=== PATIENT | female | born 2000 | race Caucasian/White ===

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

== ENCOUNTER 2022-02-15 14:57 | Emergency (ER) | payer BC, SELFPAY ==
[2022-02-15 15:23] VITALS: BP 126/73; PULSE 94; RESP 18; TEMP 36.7; O2SAT 99
--- NOTE | 2022-02-15 15:52 | ED.ABDPAIN ---
HPI - Abdominal Pain General Chief Complaint: Abdominal Pain Stated Complaint: abdominal pain,nausea Time Seen by Provider: 02/15/22 15:52 Source: patient and RN notes reviewed Mode of arrival: ambulatory Limitations: no limitations History of Present Illness HPI narrative: 21-year-old female presented for several complaints. She endorses and sore throat for several weeks, increasing over the last few days. She also endorses chronic abdominal pain and nausea related to anxiety. She states these symptoms have increased over the last 2 days as well. She reports pain in his around the belly button. She has had diarrhea over the last 3 days. She denies urinary complaints, decreased appetite, bloating, vomiting, hematochezia, melena, fevers or chills. LMP unknown in January, not sexually active. Has tried ondansetron for history of nausea but it does not help. History of tuberous sclerosis (follows with neuro), seizures, ADD, anxiety/depression, PTSD Related Data Home Medications Medication Instructions Recorded Confirmed levetiracetam 500 mg tablet 500 mg PO BID 06/04/21 02/15/22 sertraline 100 mg tablet 100 mg PO DAILY 06/04/21 02/15/22 methylphenidate HCl 10 mg tablet 10 mg DAILY 09/10/21 02/15/22 prazosin 2 mg capsule 2 mg DAILY 09/10/21 02/15/22 trazodone 100 mg tablet 100 mg PO HS 02/15/22 02/15/22 Allergies Allergy/AdvReac Type Severity Reaction Status Date / Time No Known Allergies Allergy Unknown Uncoded 02/15/22 15:37 Review of Systems Review of Systems: CONSTITUTIONAL: Denies body aches, fever, chills ENT: reports rhinorrhea, congestion CARDIOVASCULAR: Denies chest pain, palpitations, or edema. RESPIRATORY: Denies dyspnea. GASTROINTESTINAL: Endorses abdominal pain, nausea, diarrhea. Denies hematochezia, melena, hematemesis GENITOURINARY: Denies dysuria, hematuria, or CVA tenderness. SKIN: Denies rash, itching, or wounds. MUSCULOSKELETAL: Denies back pain, joint pain, or myalgia. NEUROLOGIC: Denies headache, numbness, tingling, or weakness. All systems reviewed & are unremarkable except as noted in HPI and below PMFSH Past Medical History Medical History (Reviewed 02/15/22 @ 16:06 by HANG Arthur Anxiety Depression Comments At time of signature, I have reviewed and agree with nursing past medical, surgical, social and family history unless otherwise noted. Please see nursing chart for further information. There is no relevant family history pertinent to the presenting complaint Exam Narrative: GENERAL: Well-appearing, and in no acute distress. EYES: EOMI. Conjunctivae normal. ENT: Mucous membranes pink and moist. CHEST: Clear to auscultation. HEART: Regular rate and rhythm. No murmur appreciated. Normal peripheral pulses. ABDOMEN: abd soft, nondistended, normal active bowel sounds. Tender abdomen Left upper and lower quadrants, mild to right lower quadrant; No guarding, rebound tenderness, asymmetry; Bilateral CVA tenderness; reports L>R. EXTREMITIES: Normal range of motion. No edema. SKIN: Warm, dry, no rash. Capillary refill normal. Normal skin turgor. NEURO: No focal deficits. Alert and oriented x3. PSYCH: flat affect. Course Course Emergency Course: Patient is aware of diagnosis, understands and agrees to treatment plan. Anticipatory guidance given. Patient agrees to follow-up as directed and is aware of reasons to seek care at the emergency department. Portions of this record may have been created with voice recognition software Level of Care: Express Care Visit Vital Signs Vital signs: Vital Signs Temperature 98.1 F 02/15/22 15:23 Pulse Rate 94 02/15/22 15:23 Respiratory Rate 18 02/15/22 15:23 Blood Pressure 126/73 02/15/22 15:23 Pulse Oximetry 99 02/15/22 15:23 Oxygen Delivery Room Air 02/15/22 15:23 Temperature 98.1 F 02/15/22 15:23 Pulse Rate 94 02/15/22 15:23 Respiratory Rate 18 02/15/22 15:23 Blood Pressure 126/
== END 2022-02-15 16:52 | disposition home or self-care (01) ==
PROVIDERS: Emergency Provider Nurse Practitioner Family
DX: R10.84 Generalized abdominal pain (principal); Z20.822 Contact with and (suspected) exposure to COVID-19; F41.9 Anxiety disorder, unspecified; F32.A Depression, unspecified; Q85.1 Tuberous sclerosis; G40.909 Epilepsy, unspecified, not intractable, without status epilepticus; F98.8 Other specified behavioral and emotional disorders with onset usually occurring in childhood and adolescence
CPT/HCPCS: 81003; 87081; 87086; 87088; 87426; 87804; 87880; 99213; C9803; G0463

== ENCOUNTER 2022-02-19 11:53 | Emergency (ER) | payer BC, SELFPAY ==
--- NOTE | ~2022-02-19 | XR_ITS ---
EXAMINATION: XR chest 2V DATE: 02/19/2022 13:21 INDICATION: Cough, shortness of breath and fatigue TECHNIQUE: PA and lateral views of the chest were obtained. COMPARISON: Chest radiograph dated 03/22/2021 FINDINGS: The lungs remain clear with no focal airspace opacities, pulmonary edema, pleural effusion or pneumot horax. The cardiomediastinal silhouette is normal. Mild thoracic levocurvature. IMPRESSION: 1. No acute cardiopulmonary disease. Reviewed, dictated and finalized at location A. OR QA ENGINEER
[2022-02-19 12:10] VITALS: BP 111/74; PULSE 87; RESP 20; TEMP 36.5; O2SAT 100
--- NOTE | 2022-02-19 13:05 | ED.URI ---
HPI - URI/Sore Throat General Chief Complaint: Upper Respiratory Infection Stated Complaint: Shortness of Breath,Chest Pain,Weakness Time Seen by Provider: 02/19/22 13:06 Source: patient Mode of arrival: ambulatory Limitations: no limitations History of Present Illness HPI Narrative: 21 y/o female presented for c/o chest pain and trouble breathing since last night. She states 'it feels like the breast bone is pushing to the left and burning.' Denies wheezing, cough, n/v/d/f/c. Endorses 'hypothermia' this morning with temp of 95, staying below 97. Took Delsym and Tums for symptoms without relief. Woke mother at 0400, stating she couldn't breathe. Mother stated she thought it was a panic attack. Patient did not take a prn med for anxiety, stating it makes her tired. Pt is accompanied by mother. ?History of tuberous sclerosis (follows with neuro), seizures, ADD, anxiety/depression, PTSD Related Data Home Medications Medication Instructions Recorded Confirmed levetiracetam 500 mg tablet 500 mg PO BID 06/04/21 02/19/22 sertraline 100 mg tablet 100 mg PO DAILY 06/04/21 02/19/22 methylphenidate HCl 10 mg tablet 10 mg DAILY 09/10/21 02/19/22 prazosin 2 mg capsule 2 mg DAILY 09/10/21 02/19/22 trazodone 100 mg tablet 100 mg PO HS 02/15/22 02/19/22 Allergies Allergy/AdvReac Type Severity Reaction Status Date / Time No Known Allergies Allergy Unknown Uncoded 02/19/22 12:25 Review of Systems Review of Systems: CONSTITUTIONAL: Denies body aches, fever, chills, or sweats. EYES: Denies visual changes, redness, or discharge. ENT: Denies rhinorrhea, congestion, sore throat, or otalgia. CARDIOVASCULAR: Denies chest pain, palpitations, or edema. RESPIRATORY: reports cough GASTROINTESTINAL: Denies abdominal pain, nausea, vomiting, or diarrhea. GENITOURINARY: Denies dysuria or hematuria. SKIN: Denies rash, itching, or wounds. MUSCULOSKELETAL: Denies back pain, joint pain NEUROLOGIC: Denies headache, numbness, tingling, or weakness. All systems reviewed & are unremarkable except as noted in HPI and below PMFSH Past Medical History Medical History Anxiety Depression Comments At time of signature, I have reviewed and agree with nursing past medical, surgical, social and family history unless otherwise noted. Please see nursing chart for further information. There is no relevant family history pertinent to the presenting complaint Exam Narrative: GENERAL: Well-appearing, and in no acute distress. HEAD: Normocephalic, atraumatic. EYES: EOMI. PERRLA. No redness or drainage. Conjunctivae normal. ENT: Mucous membranes pink and moist. No rhinorrhea. TMs normal bilaterally. Throat normal. Uvula midline. NECK: Normal AROM. Supple. No lymphadenopathy. CHEST: No respiratory distress. Clear to auscultation. Left chest wall tenderness reported with palpation, no bruising or rash HEART: Regular rate and rhythm. No murmur appreciated. Normal peripheral pulses. ABDOMEN: Soft, nontender, nondistended, normal active bowel sounds. SKIN: Warm, dry, no rash. Capillary refill normal. Normal skin turgor. NEURO: Alert and oriented x3. PSYCH: Appears anxious Course Course Emergency Course: Patient is aware of diagnosis, understands and agrees to treatment plan. Anticipatory guidance given. Patient agrees to follow-up as directed and is aware of reasons to seek care at the emergency department. Portions of this record may have been created with voice recognition software Level of Care: Express Care Visit Vital Signs Vital signs: Vital Signs Temperature 97.7 F 02/19/22 12:10 Pulse Rate 87 02/19/22 12:10 Respiratory Rate 20 02/19/22 12:10 Blood Pressure 111/74 02/19/22 12:10 Pulse Oximetry 100 02/19/22 12:10 Oxygen Delivery Room Air 02/19/22 12:10 Temperature 97.7 F 02/19/22 12:10 Pulse Rate 87 02/19/22 12:10 Respiratory Rate 20 02/19/22 12:10 Bloo
== END 2022-02-19 13:43 | disposition home or self-care (01) ==
PROVIDERS: Emergency Provider Nurse Practitioner Family
DX: R07.89 Other chest pain (principal); F41.9 Anxiety disorder, unspecified; F32.A Depression, unspecified; G40.909 Epilepsy, unspecified, not intractable, without status epilepticus; F98.8 Other specified behavioral and emotional disorders with onset usually occurring in childhood and adolescence; F43.10 Post-traumatic stress disorder, unspecified
CPT/HCPCS: 71046; 99213; G0463

== ENCOUNTER 2022-05-03 18:16 | Emergency (ER) | payer BC, SELFPAY ==
--- NOTE | ~2022-05-03 | XR_ITS ---
XR chest 2V DATE: 05/03/2022 19:21 INDICATION: Sinus surgery this morning.. Possible aspiration. TECHNIQUE: PA and lateral views COMPARISON: 02/19/2022 2 view chest FINDINGS: Bilateral patchy lower lobe infiltrates are present, which would be consistent with aspirat ion pneumonitis. Normal heart size. No hilar or mediastinal enlargement. No pleural effusion or pulmonary vascular con gestion or pneumothorax. Mild thoracolumbar levoscoliosis. IMPRESSION: Patchy bilateral lower lobe infiltrates which may be consistent with aspiration pneumonit is Reviewed, dictated and finalized at location A. IMPRESSION: Patchy bilateral lower lobe infiltrates which may be consistent wit h aspiration pneumonitis
[2022-05-03 18:22] VITALS: BP 117/76; PULSE 80; RESP 18; TEMP 36.5; O2SAT 97
--- NOTE | 2022-05-03 19:01 | ED.GENADULT ---
HPI - General Adult General Chief complaint: Unspecified Stated complaint: s/p sinus surgery with c/o pain and dry throat Time Seen by Provider: 05/03/22 18:26 Source: patient, family and old records reviewed Mode of arrival: ambulatory Limitations: no limitations History of Present Illness HPI narrative: Patient is a 21 y/o female who presents to the ED with with concern for aspiration pneumonia. Patient reports she underwent sinus surgery under Dr. Deric Rader at [facility] this morning. Mother at bedside reports patient had issues with maintaining her oxygen saturations in the recovery room after surgery. They performed a chest x-ray there that showed possible aspiration pneumonia. They were referred to the patient's primary for antibiotics, who referred patient back to the ED. Patient denies any fever since the surgery, cough, difficulty breathing, difficulty swallowing, choking, nausea, vomiting. She denies significant pain. She has been able to eat and drink. Patient has follow-up planned for next week with Dr. Rader. Related Data Home Medications Medication Instructions Recorded Confirmed methylphenidate HCl 10 mg tablet 10 mg DAILY 09/10/21 03/05/22 prazosin 2 mg capsule 2 mg DAILY 09/10/21 03/05/22 trazodone 100 mg tablet 100 mg PO HS 02/15/22 03/05/22 cholecalciferol (vitamin D3) PO 03/05/22 03/05/22 levetiracetam 500 mg tablet 1,000 mg PO BID 03/05/22 03/05/22 mecobalamin (vitamin B12) PO 03/05/22 03/05/22 sertraline 100 mg tablet 150 mg PO DAILY 03/05/22 03/05/22 Allergies Allergy/AdvReac Type Severity Reaction Status Date / Time No Known Allergies Allergy Unknown Uncoded 05/03/22 18:17 Review of Systems Review of Systems: CONSTITUTIONAL: Denies fever, chills, or sweats. ENT: Denies rhinorrhea, congestion, sore throat. CARDIOVASCULAR: Denies chest pain, palpitations, or edema. RESPIRATORY: Denies cough or dyspnea. GASTROINTESTINAL: Denies abdominal pain, nausea, vomiting, or diarrhea. All systems reviewed & are unremarkable except as noted in HPI and below PMFSH Past Medical History Medical History (Updated 05/03/22 @ 20:29 by Trinity Cunningham PA-C) Anemia Anxiety Chronic sinusitis Depression Encounter to establish care GERD (gastroesophageal reflux disease) Myalgia of muscle of neck Seizures Sternum pain Tuberous sclerosis Surgical History Surgical History (Updated 05/03/22 @ 20:29 by Trinity Cunningham PA-C) History of sinus surgery Social History Social History Smoking status: Never smoker Alcohol intake: never Substance use: never Substance use type: does not use Lack of Transportation: No Lack of Food: Never True Current Housing: I Have Housing Concerned About Future Housing: No Difficulty Paying Gas/Electric Bills: No Difficulty Paying for Meds: No Currently Unemployed: No Education: High School Diploma/GED Difficulty w/ Childcare or Family Care: No Exam Narrative: GENERAL: Well appearing, well-nourished, non-toxic, in no acute distress. HEAD: Normocephalic, atraumatic. ENT: Nasal packing in place with some blood noted to packing. No profuse bleeding. MMs moist. NECK: Supple. No adenopathy, no masses. RESPIRATORY: Airway patent, respirations nonlabored. Clear to auscultation bilaterally, no rales, rhonchi, wheezing. No focal lung sounds. CARDIOVASCULAR: Regular rate and rhythm without murmurs, rubs, or gallops. Radial pulses 2+ and equal bilaterally. ABDOMINAL: Soft, nontender, nondistended, no hepatosplenomegaly. Normoactive BS. MUSCULOSKELETAL: Moves all extremities. Strength/ROM intact without gross deformities. SKIN: Warm, dry, normal color. No rashes. NEURO: A&O X3. Speech clear. Cranial nerves II-XII grossly intact. Steady gait. No ataxic movements. PSYCHIATRIC: Appropriate mood and affect. Normal interaction. Course Vital Signs Vital signs: Vital Signs
[2022-05-03 20:10] LABS: Basophils Percent Auto 0.3 % (0.2-1.2); Hematocrit 39.7 % (37.0-47.0); Hemoglobin 12.9 g/dL (12.0-15.0); Immature Granulocyte Absolute 0.04 K/mm3 (0.00-0.031); Immature Granulocyte Percent A 0.3 % (0-0.5); Lymphocytes Absolute Auto 1.18 K/mm3 (0.9-3.2); Lymphocytes Percent Auto 8.2 % (18.3-44.2); Mean Corpuscular HGB Conc 32.5 g/dl (32-36); Mean Corpuscular Hemoglobin 28.7 pg (26-34); Mean Corpuscular Volume 88.4 fl (80-100); Mean Platelet Volume 8.8 fl (7.4-10.4); Monocytes Absolute Auto 0.8 K/mm3 (0.1-0.6); Monocytes Percent Auto 5.3 % (2.6-8.5); Neutrophils Absolute Auto 12.4 K/mm3 (1.3-6.7); Neutrophils Percent Auto 85.9 % (45.5-73.1); Platelet Count Result 319 k/mm3 (150-375); Red Blood Count 4.49 M/mm3 (4.2-5.4); Red Cell Distribution Width 12.8 % (11.5-14.5); White Blood Count 14.5 K/mm3 (4.5-10.0)
[2022-05-03 20:23] LABS: Alanine Aminotransferase 21 U/L (6-35); Albumin Level 4.7 g/dL (3.7-5.6); Alkaline Phosphatase 73 U/L (45-116); Anion Gap 9 mmol/L (8-16); Aspartate Amino Transferase 23 U/L (14-36); Bilirubin,Total 0.5 mg/dL (0.2-1.3); Blood Urea Nitrogen 8 mg/dL (8-21); Calcium 8.8 mg/dL (8.9-10.7); Carbon Dioxide 27 mmol/L (22-30); Chloride 101 mmol/L (98-107); Estimated CRCL calculation 119 ml/min; Estimated Glomerular Filt Rate > 60; Glucose 123 mg/dL (65-110); Potassium 4.4 mmol/L (3.4-5.0); Sodium 137 mmol/L (134-143)
[2022-05-03 20:31] VITALS: BP 101/82; PULSE 78; RESP 16; O2SAT 96
[2022-05-03] MEDS: AMOXICILLIN/CLAVULANATE K 875-125 MG TAB 1 TABLET PO (20:34)
== END 2022-05-03 20:35 | disposition home or self-care (01) ==
PROVIDERS: Emergency Provider Physician Assistant; PCP Nurse Practitioner Family
DX: J95.4 Chemical pneumonitis due to anesthesia (principal); G40.909 Epilepsy, unspecified, not intractable, without status epilepticus; F41.9 Anxiety disorder, unspecified; F32.A Depression, unspecified
CPT/HCPCS: 36415; 71046; 80053; 85025; 99283; A9270

== ENCOUNTER 2022-07-23 15:45 | Emergency (ER) | payer BC, SELFPAY ==
--- NOTE | ~2022-07-23 | XR_ITS ---
EXAMINATION: XR chest 2V 07/23/2022 16:25 INDICATION: Cough and congestion PROCEDURE: 2 view chest COMPARISON: 05/03/2022 FINDINGS: The lungs are clear. The cardiomediastinal silhouette is within normal limits. There are no pleural effusions. There is no pneumothorax suspected. IMPRESSION: 1: NO ACUTE CARDIOPULMONARY DISEASE. Reviewed, dictated and finalized at location L.
--- NOTE | 2022-07-23 16:00 | ED.GENADULT ---
HPI - General Adult General Chief complaint: Upper Respiratory Infection Stated complaint: sob Time Seen by Provider: 07/23/22 16:05 Source: patient and RN notes reviewed Mode of arrival: ambulatory Limitations: no limitations History of Present Illness HPI narrative: 21 y/o female presented for c/o nasal congestion and left ear pain, onset 3 days. Also reports acid reflux symptoms are worse, reports nausea yesterday and this morning she had hiccups. Has not been taking PPI routinely. Denies sob or wheezing, but states she has 'trouble keeping it in.' Could not sleep last night due to these symptoms. Took an Elza without improvement. 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 Denies ear drainage, tinnitus, dizziness, vomiting, diarrhea, cough, wheezing, fever or chills. States her temp was 94 this morning. History of tuberous sclerosis (follows with neuro), seizures, chronic sinusitis; Sinus surgery April 2022 with subsequent dx aspiration pneumonitis. Related Data Home Medications Medication Instructions Recorded Confirmed methylphenidate HCl 10 mg tablet 10 mg DAILY 09/10/21 05/28/22 prazosin 2 mg capsule 2 mg DAILY 09/10/21 05/28/22 trazodone 100 mg tablet 100 mg PO HS 02/15/22 05/28/22 cholecalciferol (vitamin D3) PO 03/05/22 05/28/22 levetiracetam 500 mg tablet 1,000 mg PO BID 03/05/22 05/28/22 mecobalamin (vitamin B12) PO 03/05/22 05/28/22 sertraline 100 mg tablet 150 mg PO DAILY 03/05/22 05/28/22 Allergies Allergy/AdvReac Type Severity Reaction Status Date / Time No Known Allergies Allergy Unknown Uncoded 05/28/22 13:20 Review of Systems Review of Systems: CONSTITUTIONAL: Denies malaise, chills, sweats, fever EYES: Denies visual changes, redness, or discharge ENT: Reports rhinorrhea, congestion, otalgia, denies sinus pain, sore throat CARDIOVASCULAR: Denies chest pain, palpitations, edema RESPIRATORY: Denies cough, dyspnea GASTROINTESTINAL: Denies abdominal pain, nausea, vomiting, diarrhea SKIN: Denies rash or itching MUSCULOSKELETAL: Denies myalgia NEUROLOGIC: Denies headache PMFSH Past Medical History Medical History Acute pharyngitis Anemia Anxiety Chronic sinusitis Depression Encounter to establish care GERD (gastroesophageal reflux disease) Myalgia of muscle of neck Seizures Sternum pain Tuberous sclerosis Surgical History Surgical History History of sinus surgery Social History Social History Smoking status: Never smoker Alcohol intake: never Substance use: never Substance use type: does not use Lack of Transportation: No Lack of Food: Never True Current Housing: I Have Housing Concerned About Future Housing: No Difficulty Paying Gas/Electric Bills: No Difficulty Paying for Meds: No Currently Unemployed: No Education: High School Diploma/GED Difficulty w/ Childcare or Family Care: No Exam Narrative: GENERAL: well-appearing EYES: PERRLA, conjunctivae clear ENT: Mucous membranes moist. nasal congestion. TM pearly slaughter with dull light reflex bilaterally; no tragal tenderness. Oropharynx without lesions or exudate, no drooling, no hoarseness, no trismus, uvula midline. No tripod positioning, muffled voice, soft palate or pharyngeal wall bulging NECK: Supple. No lymphadenopathy CHEST: Clear to auscultation, breath sounds equal. No wheezing, rhonchi, rales, or stridor. No respiratory distress, speaks in full sentences. HEART: Regular rate and rhythm. No murmur heard. SKIN: Warm, dry, no rash. NEURO: Alert and oriented x3. PSYCH: flat affect Course Course Emergency Course: Patient is aware of diagnosis, understands and agrees to treatment plan. Anticipatory guidance given. Patient agrees to follow-up as directed and is aware of reasons to seek care at the emergency departme
[2022-07-23 16:02] VITALS: BP 121/83; PULSE 95; RESP 18; TEMP 36.6; O2SAT 100
== END 2022-07-23 16:46 | disposition home or self-care (01) ==
PROVIDERS: Emergency Provider Nurse Practitioner Family; PCP Nurse Practitioner Family
DX: J06.9 Acute upper respiratory infection, unspecified (principal); K21.9 Gastro-esophageal reflux disease without esophagitis; G40.909 Epilepsy, unspecified, not intractable, without status epilepticus; F41.9 Anxiety disorder, unspecified; F32.A Depression, unspecified; Q85.1 Tuberous sclerosis
CPT/HCPCS: 71046; 99213; G0463

== ENCOUNTER 2022-09-06 15:18 | Emergency (ER) | payer BC, SELFPAY ==
[2022-09-06 15:30] VITALS: BP 140/91; PULSE 113; RESP 16; TEMP 36.7; O2SAT 100
--- NOTE | 2022-09-06 15:30 | ED.GENADULT ---
HPI - General Adult General Chief complaint: Upper Respiratory Infection Stated complaint: Shortness Of Breath,Regurgitation,Itching Time Seen by Provider: 09/06/22 15:31 Source: patient Mode of arrival: ambulatory Limitations: no limitations History of Present Illness HPI narrative: 22 y/o female with history of chronic nausea and chronic left chest pain presented for c/o worsening of these symptoms over the past few days. Endorses nausea causes gagging and feels like she is choking and cannot swallow. She states she forces herself to swallow. Ate cereal with milk CORE MOUNTER. Also reports she felt like she was going to pass out yesterday, described room spinning and blacking out. States she could not sleep last night due to the swallowing problem. Reports neck pain and sternum burning and runny nose. Patient stated her family has hx EOE, and after researching her symptoms, she is concerned for this. She does not follow with GI. Denies abdominal pain, vomiting, diarrhea, cough, fever or chills. Not taking anything for pain, stating 'it usually does not help.' History of tuberous sclerosis (follows with neuro), seizures, chronic sinusitis; Sinus surgery April 2022 with subsequent dx aspiration pneumonitis Related Data Home Medications Medication Instructions Recorded Confirmed methylphenidate HCl 10 mg tablet 10 mg DAILY 09/10/21 09/06/22 prazosin 2 mg capsule 2 mg DAILY 09/10/21 09/06/22 trazodone 100 mg tablet 100 mg PO HS 02/15/22 09/06/22 levetiracetam 500 mg tablet 1,000 mg PO BID 03/05/22 09/06/22 sertraline 100 mg tablet 150 mg PO DAILY 03/05/22 09/06/22 topiramate 25 mg tablet 25 mg PO PRN PRN Headache 09/06/22 09/06/22 Allergies Allergy/AdvReac Type Severity Reaction Status Date / Time No Known Allergies Allergy Unknown Uncoded 09/06/22 15:21 Review of Systems Review of Systems: CONSTITUTIONAL: Denies body aches, fever, chills, or sweats. EYES: Denies visual changes, redness, or discharge. ENT: Denies rhinorrhea, congestion, sore throat, or otalgia. CARDIOVASCULAR: Reports chest pain, Denies palpitations, or edema. RESPIRATORY: Denies cough Reports dyspnea. GASTROINTESTINAL: Reports nausea, gagging, difficulty swallowing Denies abdominal pain, vomiting, or diarrhea. GENITOURINARY: Denies dysuria or hematuria. SKIN: Denies rash, itching, or wounds. MUSCULOSKELETAL: Denies back pain, joint pain, or myalgia. NEUROLOGIC: Denies headache, numbness, tingling, or weakness. All systems reviewed & are unremarkable except as noted in HPI and below PMFSH Past Medical History Medical History Acute pharyngitis Anemia Anxiety Chronic sinusitis Depression Encounter to establish care GERD (gastroesophageal reflux disease) Myalgia of muscle of neck Seizures Sternum pain Tuberous sclerosis Surgical History Surgical History History of sinus surgery Social History Social History Smoking status: Never smoker Alcohol intake: never Substance use: never Substance use type: does not use Lack of Transportation: No Lack of Food: Never True Current Housing: I Have Housing Concerned About Future Housing: No Difficulty Paying Gas/Electric Bills: No Difficulty Paying for Meds: No Currently Unemployed: No Education: High School Diploma/GED Difficulty w/ Childcare or Family Care: No Comments At time of signature, I have reviewed and agree with nursing past medical, surgical, social and family history unless otherwise noted. Please see nursing chart for further information. There is no relevant family history pertinent to the presenting complaint Exam Narrative: GENERAL: Well-appearing, well-nourished, and in no acute distress. HEAD: Normocephalic, atraumatic. EYES: No redness or drainage. Conjunctivae normal. ENT: Mucous memb
--- NOTE | 2022-09-06 15:56 | ECG_ITS ---
Measurements Intervals [place] Rate: 94 P: 54 SC: 144 QRS: 62 QRSD: 81 T: 39 QT: 331 QTc: 416 Interpretive Statements SINUS RHYTHM BASELINE WANDER- V4-V6 NORMAL ECG COMPARED TO ECG 03/22/2021 16:07:54 SINUS RHYTHM NOW PRESENT Electronically Signed On 09-06-2022 20:09:27 CDT by Juan Jose Goodson D.O.
== END 2022-09-06 16:20 | disposition home or self-care (01) ==
PROVIDERS: Emergency Provider Nurse Practitioner Family; PCP Nurse Practitioner Family
DX: R11.0 Nausea (principal); R07.89 Other chest pain; K21.9 Gastro-esophageal reflux disease without esophagitis; F41.9 Anxiety disorder, unspecified; F32.A Depression, unspecified
CPT/HCPCS: 93005; 99213; G0463

== ENCOUNTER 2022-09-18 18:28 | Emergency (ER) | payer OTHER, BC, SELFPAY ==
[2022-09-18 18:38] VITALS: BP 121/76; PULSE 98; RESP 18; TEMP 36.3; O2SAT 100
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
== END 2022-09-18 19:13 | disposition home or self-care (01) ==
PROVIDERS: Emergency Provider Nurse Practitioner Family; PCP Nurse Practitioner Family
DX: S06.0X0A Concussion without loss of consciousness, initial encounter (principal); W20.8XXA Other cause of strike by thrown, projected or falling object, initial encounter; Y99.0 Civilian activity done for income or pay; F41.9 Anxiety disorder, unspecified; F32.A Depression, unspecified; K21.9 Gastro-esophageal reflux disease without esophagitis; G40.909 Epilepsy, unspecified, not intractable, without status epilepticus
CPT/HCPCS: 99212; 99213; G0463

== ENCOUNTER → 2023-06-05 11:44 | Outpatient (CLI) | payer BC, SELFPAY ==
--- NOTE | ~2023-06-05 | XR_ITS ---
EXAMINATION: XR chest 2V 06/05/2023 12:01 INDICATION: Shortness of breath PROCEDURE: 2 view chest COMPARISON: Comparison to multiple prior studies sequentially, with oldest reviewed study dated 03/22. FINDINGS: The lungs are clear. The cardiomediastinal silhouette is within normal limits. There are no pleural effusions. There is no pneumothorax suspected. IMPRESSION: 1: NO ACUTE CARDIOPULMONARY DISEASE. Reviewed, dictated and finalized at location B.
== END ==
PROVIDERS: PCP Family Medicine; Visit Provider Nurse Practitioner Family
DX: R06.02 Shortness of breath (principal)
CPT/HCPCS: 71046

== ENCOUNTER 2023-07-01 09:39 | Outpatient (CLI) | payer BC, SELFPAY ==
--- NOTE | 2023-07-01 09:43 | ECHO_ITS ---
Patient Info Name: Kat Nichole Age: 22 years : 2000 Gender: Female Ht: 64 in Wt: 126 lbs BSA: 1.61 m2 HR: 69 bpm BP: 120 / 88 mmHg Technical Quality: Fair Exam Date: 07/01/2023 9:51 AM Exam Location: Echo Lab Patient Status: Outpatient Admit Date: 07/01/2023 Staff Ordering Physician: Emilia Wong NP Jewel Bearing Maker: Che العراقي RDCS Attending Provider: Emilia Wong NP Exam Type: CA echo doppler color flow Study Info Indications R07.89 - Other chest pain Complete two-dimensional, color flow and Doppler transthoracic echocardiogram is performed. Summary 1. Complete two-dimensional, color flow and Doppler transthoracic echocardiogram is performed. 2. Left ventricular chamber dimension is normal. 3. Left ventricular systolic function is normal, estimated at 60-65%. 4. The left ventricular diastolic function is normal. 5. E/e' 6 is not elevated. 6. No pulmonary hypertension, estimated pulmonary arterial systolic pressure is 17 mmHg. Left Ventricle E/e' 6 is not elevated. Left ventricular chamber dimension is normal. Left ventricular systolic function is normal, estimated at 60-65%. The left ventricular diastolic function is normal. Right Ventricle Right ventricular chamber dimension is normal. Right ventricular systolic function is normal. Left Atria Left atrial chamber dimension is normal. Right Atria Right atrial chamber dimension is normal. Aortic Valve The aortic valve is probable trileaflet. There is no aortic valve stenosis. There is no aortic valve regurgitation. Pulmonic Valve There is no pulmonic regurgitation. Mitral Valve There is no mitral valve stenosis. There is no mitral valve regurgitation. Tricuspid Valve There is no tricuspid valve regurgitation. No pulmonary hypertension, estimated pulmonary arterial systolic pressure is 17 mmHg. Pericardium/Pleural There is no pericardial effusion. Inferior Vena Cava Normal inferior vena cava with >50% collapse upon inspiration consistent with normal right atrial pressure, 5 mmHg. Aorta The aortic root size at the sinus of Valsalva is normal. Left Ventricular Outflow Tract Name Value Normal LVOT 2D LVOT Diameter 2.0 cm LVOT Doppler LVOT Peak Gradient 3 mmHg LVOT Mean Gradient 2 mmHg LVOT VTI 18 cm LVOT VTI/AV VTI Ratio 0.9 LVOT Stroke Volume 56 ml LVOT CO 4.0 l/min LVOT CI 2.5 l/min/m2 Pulmonic Valve Name Value Normal RVOT Doppler RVOT Peak Gradient 1 mmHg PV Doppler PV Peak Gradient 3 mmHg Mitral Valve Name Value Nor
== END 2023-07-01 09:40 | disposition home or self-care (01) ==
PROVIDERS: PCP Family Medicine; Visit Provider Nurse Practitioner Family
DX: R07.89 Other chest pain (principal); Q85.1 Tuberous sclerosis
CPT/HCPCS: 93306